=== PATIENT | female | born 1965 | race Caucasian/White ===

== ENCOUNTER 2018-06-27 08:27 | Day surgery (SDC) | payer OTHER ==
[~2018-06-27 08:27] MED LIST: Lactated Ringers 1,000 ML IV SCH
[2018-06-27] MEDS ORDERED: DIPRIVAN 200 MG/20 ML IV ONE (08:28)
[2018-06-27] MEDS ORDERED: Lactated Ringers 1,000 ML IV ONE (08:49)
--- NOTE | 2018-06-27 09:04 | HP ---
DATE OF SURGERY: 06/27/2018 HISTORY OF PRESENT ILLNESS: The patient is a 52 year-old had some diarrhea for some time, had some constipation, some left sided abdominal aches at times. Last colonoscopy four or five years ago and had some polyps. She denies any bloody stools currently. Family history negative for colon cancer, inflammatory bowel disease. PAST MEDICAL HISTORY: Diabetes, hypertension. She has had some epigastric pain, some left-sided pain, frequent diarrhea over the past six months, chronic obstructive pulmonary disease, arthritis, depression, reflux, hypercholesterolemia, hypertension, diabetes. 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 PAST SURGICAL HISTORY: Ear surgery. Tubal in the past. Hernia surgery. Left breast biopsy. Carpal tunnel in the past. MEDICATIONS: Aspirin, Atorvastatin, diphenhydramine, Fenofibrate, gabapentin, Humalog, ibuprofen, Janumet, Lantus, levothyroxine, lisinopril, metoprolol, Nasacort, [place], nortriptyline, omeprazole, oxybutynin, paroxetine, pramipexole, ranitidine. ALLERGIES: BACTRIM. FAMILY HISTORY: Diabetes, hypertension, heart disease. SOCIAL HISTORY: One pack per day smoker in the past. No alcohol abuse. REVIEW OF SYSTEMS: Twelve systems reviewed. No chest pain or palpitations other systems negative or noncontributory as above and per preadmission questionnaire. PHYSICAL EXAMINATION: GENERAL: No acute distress. HEENT: Sclerae nonicteric. NECK: No JVD. CHEST: Equal excursion, nonlabored breathing. CVS: Regular rate and rhythm. ABDOMEN: Soft. No peritoneal signs. EXTREMITIES: No significant edema. NEURO: Alert, oriented, moving extremities symmetrically. No gross motor deficits noted. IMPRESSION: History of polyps, history of change in bowel habits, history of some abdominal aches and pains and also epigastric pain. I feel she is a candidate for upper and lower endoscopy for further evaluation. Risks and benefits explained in detail but not limited to bleeding or infection, risk of bowel injury or perforation possibly requiring open procedure, risk of missed or nondiagnosis or incomplete exam possibly requiring barium enema, other studies or procedures, general risk of anesthesia or sedation but not limited to, possibility of inability to diagnose etiology of her symptoms possibly requiring other testing or referral. She understands. Will proceed with EGD and colonoscopy as an outpatient.
[2018-06-27 12:00] VITALS: BP 162/79; PULSE 71; O2SAT 99
--- NOTE | 2018-06-28 07:51 | OP ---
SURGERY DATE/TIME: 06/27/2018 1023 PREOPERATIVE DIAGNOSES: 1) History of epigastric pain. 2) History of change in bowel movements. 3) History of polyp. 4) Need for upper and lower endoscopy. POSTOPERATIVE DIAGNOSES: 1) Minimal to mild gastritis. 2) Very short segment possible distal gastroesophagitis. 3) Diverticulosis. 4) Polyps. 5) Fair bowel prep. 6) Small internal and external hemorrhoids. PROCEDURES: 1) EGD with cold biopsy. 2) Cold biopsy of small bowel to evaluate for celiac sprue. 3) Cold biopsy of the antrum to evaluate for Helicobacter pylori. 4) Cold biopsy mid upper body stomach inflammation. 5) Cold biopsy distal esophagus to evaluate for short segment distal gastroesophagitis. 6) Random mid esophagus biopsy to evaluate for eosinophilic esophagitis. 7) Colonoscopy to cecum. 8) Hot snare polypectomy. 9) Small transverse colon polyp. 10) Hot snare polypectomy sigmoid colon polyp. 11) Hot biopsy small additional transverse colon polyp x2. 12) Hot biopsy small polyp sigmoid colon, rectosigmoid and rectal polyps. SURGEON: Dr. Poncho Dee. ANESTHESIA: MAC. ESTIMATED BLOOD LOSS: Minimal. INDICATIONS: As noted above. Risks and benefits explained in detail and not limited to and consent obtained. DESCRIPTION OF PROCEDURE AND FINDINGS: The patient is taken to the endoscopy room. MAC anesthesia introduced. After official time out and no disagreement with planned procedure, bite block positioned. Video gastroscope easily passed down through the junction of the second and third portion of the duodenum. Given her symptom complaints cold biopsy taken of small bowel to evaluate for celiac sprue. Good hemostasis noted. A cold biopsy taken of the stomach to evaluate for mild gastric erythema to evaluate for Helicobacter pylori. Also in the mid body of the stomach had a little bit more erythema. There are no signs of any ulcers or masses. There is no evidence of any hiatal hernia on retroflex. The scope pulled back. The gastroesophageal junction about 40 cm. Short segment of 2 to 5 mm short segment of gastroesophagitis. Cold biopsy taken to evaluate for Helicobacter pylori. Random cold biopsies taken in the mid esophagus to evaluate the eosinophilic esophagitis. The scope is withdrawn. The patient tolerated the procedure well. Attention is then turned to colonoscopy. Digital rectal exam did not reveal any rectal masses. She did have some small internal and external hemorrhoids. Video colonoscope inserted and passed up the tortuous sigmoid, descending, transverse and ascending colon. With positioning on her back, the scope was able to be passed around to the cecum. Appendiceal orifice and bowel well visualized. Prep overall is fair. Some liquidy stools suctioned and irrigated as well as possible. The scope is slowly and carefully withdrawn. There were three polyps in the transverse colon one was removed with hot snare polypectomy and another couple small ones were removed with hot biopsy forceps. Good hemostasis noted. Scope pulled back to sigmoid colon and small polyp or two removed with hot biopsy forceps. Otherwise larger 4 to 5 mm ones removed with hot snare polypectomy with brief bursts of cautery. Good hemostasis noted. Otherwise small raised lesion versus early polyps in the rectosigmoid removed with hot biopsy forceps and a couple small ones in the rectum removed with hot biopsy forceps with brief bursts of cautery. Otherwise she had small internal and external hemorrhoids. There were no signs of any large polyps, masses or obstructing lesions. The scope is withdrawn. The patient tolerated the procedure well. Findings discussed with the family out in the waiting area.
== END 2018-06-27 12:10 | disposition home or self-care (01) ==
LOC: SDC 08:27
PROVIDERS: ATTEND Surgery
DX: K29.70 Gastritis, unspecified, without bleeding (principal); K20.9 Esophagitis, unspecified; K57.30 Diverticulosis of large intestine without perforation or abscess without bleeding; D12.5 Benign neoplasm of sigmoid colon; D12.8 Benign neoplasm of rectum; K64.4 Residual hemorrhoidal skin tags; K63.5 Polyp of colon; K64.8 Other hemorrhoids; E11.9 Type 2 diabetes mellitus without complications; I10 Essential (primary) hypertension; Z79.899 Other long term (current) drug therapy
CPT/HCPCS: 82962; 87081; 88305; J2704